=== PATIENT | female | born 1995 | race Caucasian/White ===

== ENCOUNTER 2018-04-01 07:49 | Emergency (ER) | payer OTHER ==
[2018-04-01 07:51] VITALS: BP 126/70; PULSE 68; RESP 15; TEMP 98.4; O2SAT 99
[2018-04-01] MEDS ORDERED: SPIR50TA PO (08:10)
[2018-04-01] MEDS ORDERED: LEVO100T5 PO (08:10)
[2018-04-01] MEDS ORDERED: ESCI10TA PO (08:10)
--- NOTE | 2018-04-01 08:13 | PD ---
HPI Chief Complaint: Exposure to Blood/Body Fluids Time Seen by Provider: 08:07 Travel History International Travel<30 days: No Contact w/Intl Traveler<30days: No Traveled to known affect area: No History of Present Illness HPI Patient is a 22-year-old female presenting to the emergency department for evaluation after exposure to blood. 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 There is a 1-1/2 cm superficial abrasion to the left inner forearm. Patient denies any pain. Wound was well irrigated and cleaned after the injury occurred. Patient has no other complaints at this time. Symptom onset was sudden, symptoms are mild in nature. There are no alleviating or exacerbating factors. PFSH Past Medical History Thyroid Disease: Yes (Letty's thyroiditis) ?: Not Social History Alcohol Use: No Tobacco Use: No Allergies-Medications (Allergen,Severity, Reaction): Coded Allergies: No Known Allergies (Unverified , 04/01/18) Review of Systems Except as stated in HPI: all other systems reviewed are Neg Skin: Positive Other (Abrasion) Physical Exam Narrative GENERAL: Well-developed, well-nourished, alert female. Presenting in no acute distress. SKIN: Warm and dry. 1.5 cm superficial abrasion to the left inner forearm. No active bleeding noted. No surrounding erythema or induration. HEAD: Normocephalic. EYES: No scleral icterus. No injection or drainage. NECK: Supple, trachea midline. No JVD or lymphadenopathy. CARDIOVASCULAR: Regular rate and rhythm without murmurs, gallops, or rubs. RESPIRATORY: Breath sounds equal bilaterally. No accessory muscle use. GASTROINTESTINAL: Abdomen soft, non-tender, nondistended. MUSCULOSKELETAL: No cyanosis, or edema. BACK: Nontender without obvious deformity. No CVA tenderness. Data Data Last Documented VS Vital Signs Date Time Temp Pulse Resp B/P (MAP) Pulse Ox O2 Delivery O2 Flow Rate FiO2 04/01/18 07:51 98.4 68 15 126/70 (88) 99 MDM Medical Decision Making Medical Screen Exam Complete: Yes Emergency Medical Condition: Yes Interpretation(s) Vital Signs Date Time Temp Pulse Resp B/P (MAP) Pulse Ox O2 Delivery O2 Flow Rate FiO2 04/01/18 07:51 98.4 68 15 126/70 (09) 99 Differential Diagnosis Abrasion versus exposure versus puncture versus other Narrative Course Patient is well-appearing 22-year-old female presented for evaluation after sustaining an abrasion from a butterfly needle while working as a 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 Patient's vital signs are stable, PEP is not recommended at this time. Discussed with patient, patient declined Pap at this time. Source patient is being tested. Exposure packet completed per protocol. Patient stable for discharge. Patient is to follow-up with employee med. Diagnosis Primary Impression: Employee exposure to blood Additional Impression: Abrasion forearm Referrals: Employ Med 1 day Patient Instructions: Abrasion (ED), General Instructions, Postexposure Prophylaxis (ED) Additional Instructions: Follow-up with employee med Return to emergency department for any new worsening symptoms Apply topical antibiotic ointment to abrasion, cover with Band-Aid until well- healed. Med/Other Pt SpecificInfo: No Change to Meds Disposition: 01 DISCHARGE HOME Condition: Stable Kami Chakraborty Apr 01, 2018 08:13
== END 2018-04-01 08:59 | disposition home or self-care (01) ==
LOC: NEPD 07:49
DX: S50.812A Abrasion of left forearm, initial encounter (principal); E07.9 Disorder of thyroid, unspecified; Z77.21 Contact with and (suspected) exposure to potentially hazardous body fluids; W46.1XXA Contact with contaminated hypodermic needle, initial encounter; Y99.0 Civilian activity done for income or pay
CPT/HCPCS: 99282